=== PATIENT | male | born 1985 | race African-American/Black ===

== ENCOUNTER 2019-09-17 09:19 | Emergency (ER) | payer OTHER ==
[~2019-09-17] VITALS: Ht 170.2 cm; Wt 295.0 kg
[2019-09-17] MEDS ORDERED: AMOXICILLIN TRIHYDRATE 250 MG CAPSULE PO ONE (09:45)
[2019-09-17 09:57] VITALS: BP 147/73
== END 2019-09-17 10:11 | disposition home or self-care (01) ==
LOC: EMS 09:19
DX: J02.9 Acute pharyngitis, unspecified (principal); F17.210 Nicotine dependence, cigarettes, uncomplicated
CPT/HCPCS: 99406

== ENCOUNTER 2022-12-17 14:59 | Emergency (ER) | payer OTHER ==
[~2022-12-17] VITALS: Ht 167.6 cm; Wt 136.4 kg
[2022-12-17] MEDS ORDERED: IBUPROFEN 600 MG TABLET PO ONE (16:15)
[2022-12-17] MEDS ORDERED: ACETAMINOPHEN 500 MG TABLET PO ONE (16:15)
[2022-12-17 17:45] VITALS: BP 141/68
[2022-12-17] MEDS ORDERED: IBUP-1492 PO (17:45)
== END 2022-12-17 17:50 | disposition home or self-care (01) ==
LOC: EMS 15:02
DX: M79.674 Pain in right toe(s) (principal); F17.210 Nicotine dependence, cigarettes, uncomplicated; F12.90 Cannabis use, unspecified, uncomplicated
CPT/HCPCS: 99283